=== PATIENT | male | born 1980 | race African-American/Black ===

== ENCOUNTER 2021-10-18 18:21 | Emergency (ER) | payer OTHER, MEDICAID ==
[~2021-10-18] VITALS: Ht 167.6 cm; Wt 78.0 kg
[~2021-10-18 18:21] MED LIST: GABA-529 PO; LITH150C PO
[2021-10-18 22:44] LABS: HEMATOCRIT. 44.6 % (42.0-52.0); HEMOGLOBIN. 14.7 g/dL (14.0-18.0); MEAN CORPUSCULAR HEMOGLOBIN 28.1 pg (28.0-32.0); MEAN CORPUSCULAR VOLUME 85.4 fL (80.0-94.0); PLATELET 226 x1000/uL (130-400); RED BLOOD CELL COUNT 5.22 mill/uL (4.7-6.1); RED CELL DISTRIBUTION WIDTH 13.9 % (11.6-14.6)
[2021-10-18 22:50] LABS: CHLORIDE 107 mEq/L (98-107)
[2021-10-18 22:56] LABS: ETHANOL BLOOD < 10 mg/dL
[2021-10-18 23:27] LABS: PLATELET ESTIMATE NORMAL
[2021-10-18 23:36] LABS: CLARITY URINE CLEAR (CLEAR); COLOR URINE YELLOW (YELLOW); KETONES URINE NEGATIVE (NEGATIVE); LEUKOCYTE ESTERASE URINE TRACE (NEGATIVE); NITRITE URINE NEGATIVE (NEGATIVE); OCCULT BLOOD URINE NEGATIVE (NEGATIVE); PROTEIN URINE NEGATIVE (NEGATIVE); SPECIFIC GRAVITY URINE 1.016 (1.005-1.030)
[2021-10-18 23:50] LABS: *AMPHETAMINES SCREEN URINE PRESUMTIVE POSITIVE (NEGATIVE); *BARBITURATES SCREEN URINE NEGATIVE (NEGATIVE); *BENZODIAZEPINES SCREEN URINE NEGATIVE (NEGATIVE); *COCAINE SCREEN URINE NEGATIVE (NEGATIVE); METHADONE URINE SCREEN NEGATIVE (NEGATIVE); OPIATES URINE SCREEN NEGATIVE (NEGATIVE)
[2021-10-18 23:52] LABS: CANNABINOID URINE SCREEN NEGATIVE (NEGATIVE); PHENCYCLIDINE URINE SCREEN NEGATIVE (NEGATIVE)
[2021-10-19] MEDS: SERTRALINE HCL 50MG TABLET PO SCH (09:00)
[2021-10-19] MEDS: OLANZAPINE 5MG TABLET PO SCH ×2 (11:18→17:27)
[2021-10-20] MEDS: OLANZAPINE 5MG TABLET PO SCH ×2 (08:49→18:00)
[2021-10-20] MEDS: SERTRALINE HCL 50MG TABLET PO SCH (08:49)
[2021-10-21] MEDS: OLANZAPINE 2.5MG TABLET PO SCH ×2 (09:20→21:47)
[2021-10-21] MEDS: SERTRALINE HCL 50MG TABLET PO SCH (09:20)
[2021-10-22] MEDS: OLANZAPINE 2.5MG TABLET PO SCH ×2 (10:07→21:55)
[2021-10-22] MEDS: SERTRALINE HCL 50MG TABLET PO SCH (10:07)
[2021-10-22] MEDS: EMTRICITABINE 200MG CAPSULE PO SCH (15:00)
[2021-10-22] MEDS: TENOFOVIR 300MG TABLET PO SCH (15:00)
[2021-10-23] MEDS: EMTRICITABINE 200MG CAPSULE PO SCH (08:40)
[2021-10-23] MEDS: TENOFOVIR 300MG TABLET PO SCH (08:40)
[2021-10-23] MEDS: OLANZAPINE 2.5MG TABLET PO SCH (08:40)
[2021-10-23] MEDS: SERTRALINE HCL 50MG TABLET PO SCH (09:00)
[2021-10-23] MEDS ORDERED: ELVI1TAB3 MT (16:14)
[2021-10-23] MEDS ORDERED: BICT1TAB PO (16:14)
[2021-10-23] MEDS ORDERED: OLAN10TA72 MT (16:14)
[2021-10-23] MEDS ORDERED: LAM1 MT (16:14)
[2021-10-23] MEDS ORDERED: ALBU18HF2 IH (16:14)
[2021-10-23] MEDS ORDERED: GABA-532 MT (16:14)
[2021-10-23 16:39] VITALS: BP 124/85
== END 2021-10-23 16:53 | disposition home or self-care (01) ==
LOC: ER 18:21
DX: R45.850 Homicidal ideations (principal); F22 Delusional disorders; F29 Unspecified psychosis not due to a substance or known physiological condition; J45.909 Unspecified asthma, uncomplicated; F20.9 Schizophrenia, unspecified
CPT/HCPCS: 36415; 80053; 80305; 80320; 81003; 85025; 99285; G0480

== ENCOUNTER 2023-09-03 22:42 | Emergency (ER) | payer MEDICARE, MEDICAID ==
[~2023-09-03] VITALS: Ht 167.6 cm; Wt 81.7 kg
[~2023-09-03 22:42] MED LIST changes: +ALBU18HF2 IH; +BICT1TAB PO; +ELVI1TAB3 MT; +GABA-532 MT; +LAM1 MT; +OLAN10TA72 MT
[2023-09-03 22:53] VITALS: BP 109/69; PULSE 108; RESP 16; TEMP 97.8; O2SAT 97
[2023-09-03] MEDS ORDERED: DOLU1TAB2 PO ×3 (23:14→23:44)
[2023-09-03] MEDS ORDERED: ELVI1TAB3 MT ×3 (23:14→23:44)
== END 2023-09-03 23:45 | disposition home or self-care (01) ==
LOC: ER 22:42
DX: Z76.0 Encounter for issue of repeat prescription (principal); J45.909 Unspecified asthma, uncomplicated; F20.9 Schizophrenia, unspecified; Z98.890 Other specified postprocedural states
CPT/HCPCS: 99283

== ENCOUNTER 2023-10-04 23:42 | Emergency (ER) | payer MEDICARE, MEDICAID ==
[~2023-10-04] VITALS: Ht 167.6 cm; Wt 79.5 kg
[~2023-10-04 23:42] MED LIST changes: +DOLU1TAB2 PO
[2023-10-05 01:00] VITALS: BP 133/93; O2SAT 99
[2023-10-05 01:41] LABS: BASOPHILS % 0.3 % (0.0-2.0); HEMATOCRIT. 43.2 % (42.0-52.0); HEMOGLOBIN. 14.2 g/dL (14.0-18.0); MEAN CORPUSCULAR HEMOGLOBIN 28.9 pg (28.0-32.0); MEAN CORPUSCULAR HGB CONC 32.8 g/dL (31.0-37.0); MEAN PLATELET VOLUME 7.9 fl (7.4-10.4); MONOCYTES % 10.8 % (2.0-8.0); NEUTROPHILS % 36.9 % (40.0-76.0); PLATELET 251 x1000/uL (130-400); RED CELL DISTRIBUTION WIDTH 14.1 % (11.6-14.6); WHITE BLOOD COUNT 5.8 x1000/uL (4.5-11.0)
[2023-10-05 01:54] LABS: ALANINE AMINOTRANSFERASE 20 IU/L (10-49); ALBUMIN 4.6 g/dL (3.2-4.8); ASPARTATE AMINOTRANSFERASE 28 IU/L (<34); BILIRUBIN TOTAL 0.4 mg/dL (0.1-1.0); CALCIUM 9.7 mg/dL (8.7-10.4); CARBON DIOXIDE 28 mEq/L (21-32); CHLORIDE 107 mEq/L (98-107); CREATININE 0.9 mg/dL (0.6-1.3); GLUCOSE 97 mg/dL (70-105); POTASSIUM 4.4 mEq/L (3.5-5.1); PROTEIN TOTAL 7.7 g/dL (6.0-8.3); SODIUM 142 mEq/L (136-145); UREA NITROGEN BLOOD 10 mg/dL (9-23)
[2023-10-05] MEDS ORDERED: LAMOTRIGINE 100MG TABLET PO STA (06:45)
[2023-10-05] MEDS ORDERED: FLUT9.9S BOTHNSTRLS (06:49)
[2023-10-05 07:19] VITALS: PULSE 75; RESP 20; TEMP 98.6
== END 2023-10-05 07:20 | disposition home or self-care (01) ==
LOC: ER 23:42
DX: R56.9 Unspecified convulsions (principal); Z88.1 Allergy status to other antibiotic agents
CPT/HCPCS: 36415; 80053; 82962; 85025; 93005; 99284

== ENCOUNTER 2025-07-01 04:24 | Inpatient (IN) | payer MEDICARE, MEDICAID ==
[~2025-07-01] VITALS: Ht 167.6 cm; Wt 84.8 kg
[~2025-07-01 04:24] MED LIST changes: +ABIL5 PO; +ASPI-1406 PO; +COR6 PO; +EMPA10TA PO; +FAMO20TA8 PO; +FLUT9.9S BOTHNSTRLS; +FURO40TA5 MT; +GABA-1180 MT; -GABA-529 PO; -GABA-532 MT; -OLAN10TA72 MT; +RIVA10TA PO; +SACU1TAB MT; +SERT-112 PO; +SERT100T PO; +SPIR25TA PO
[2025-07-01] MEDS ORDERED: ASPIRIN 325MG TABLET PO ONE (05:30)
[2025-07-01 05:35] LABS: BASOPHILS % 1.1 % (0.0-2.0); EOSINOPHILS % 6.3 % (0.0-5.0); HEMATOCRIT. 42.9 % (42.0-52.0); HEMOGLOBIN. 13.8 g/dL (14.0-18.0); LYMPHOCYTES % 58.6 % (20.0-50.0); MEAN PLATELET VOLUME 7.5 fl (7.4-10.4); MONOCYTES % 5.2 % (2.0-8.0); NEUTROPHILS % 28.8 % (40.0-76.0); PLATELET 162 x1000/uL (130-400); RED BLOOD CELL COUNT 5.36 mill/uL (4.7-6.1); RED CELL DISTRIBUTION WIDTH 23.9 % (11.6-14.6)
[2025-07-01 05:38] LABS: ADD RBC MORPHOLOGY YES
[2025-07-01 05:44] LABS: INR 1.1
[2025-07-01 06:05] LABS: CREATININE 1.0 mg/dL (0.6-1.3); UREA NITROGEN BLOOD 8 mg/dL (9-23)
[2025-07-01 06:06] LABS: TROPONIN I HIGH SENSITIVITY 37 ng/L (3.0-53)
[2025-07-01 06:07] LABS: ASPARTATE AMINOTRANSFERASE 37 IU/L (<34); BILIRUBIN DIRECT 0.4 mg/dL (<=3.0); BILIRUBIN TOTAL 1.0 mg/dL (0.1-1.0); PROTEIN TOTAL 6.1 g/dL (6.0-8.3)
[2025-07-01 06:14] LABS: PLATELET ESTIMATE NORMAL
[2025-07-01] MEDS ORDERED: ACETAMINOPHEN 325MG TABLET PO PRN (09:15)
[2025-07-01] MEDS ORDERED: CLONIDINE 0.1MG TABLET PO PRN (09:15)
[2025-07-01] MEDS: ASPIRIN 81MG EC TABLET PO SCH (09:15)
[2025-07-01] MEDS ORDERED: ONDANSETRON HCL 4MG/2ML INJ IV PRN (09:15)
[2025-07-01 10:12] LABS: PHOSPHORUS 3.9 mg/dL (2.5-4.9)
[2025-07-01 10:30] VITALS: BP 107/69; PULSE 99; RESP 20; TEMP 36.5; TEMP 36.5292; O2SAT 96
[2025-07-01] MEDS: EMPAGLIFLOZIN 10MG TABLET PO SCH (11:17)
[2025-07-01] MEDS: PANTOPRAZOLE SODIUM 40 MG/VIAL IV SCH (11:17)
[2025-07-01 11:53] LABS: HEPATITIS A AB IGM NEGATIVE (Negative)
[2025-07-01 11:54] LABS: HEPATITIS B CORE AB IGM NEGATIVE (Negative); HEPATITIS C AB NON REACTIVE (Neg) (Negative)
[2025-07-01] MEDS ORDERED: TENOFOVIR 300MG TABLET PO SCH (12:00)
[2025-07-01] MEDS ORDERED: EMTRICITABINE 200MG CAPSULE PO SCH (12:00)
[2025-07-01 12:54] LABS: INR 1.1
[2025-07-01 13:01] LABS: TROPONIN I HIGH SENSITIVITY 34 ng/L (3.0-53)
[2025-07-01] MEDS: SODIUM CHLORIDE 0.9% 500 ML IV ONE (13:10)
[2025-07-01] MEDS ORDERED: ATOR40TA70 PO ×2 (13:36→14:49)
[2025-07-01] MEDS ORDERED: RIVA20TA PO ×2 (13:36→14:52)
[2025-07-01] MEDS ORDERED: MIRT-89 PO (13:36)
[2025-07-01] MEDS ORDERED: LOSA25TA26 PO (13:36)
[2025-07-01] MEDS ORDERED: DOLU1TAB2 PO (13:37)
[2025-07-01] MEDS: FUROSEMIDE 20MG/2ML VIAL IVP SCH ×2 (14:32→17:47)
[2025-07-01] MEDS: SPIRONOLACTONE 12.5MG TABLET PO SCH (14:33)
[2025-07-01] MEDS ORDERED: LAMO100T16 PO (14:49)
[2025-07-01] MEDS ORDERED: OLAN10TA72 PO (14:52)
[2025-07-01] MEDS ORDERED: METO-396 PO (14:52)
[2025-07-01] MEDS ORDERED: SERT-112 PO (14:53)
[2025-07-01 16:00] VITALS: BP 122/92; PULSE 111; RESP 20; TEMP 36.5; O2SAT 100
[2025-07-01] MEDS ORDERED: RIVAROXABAN 10 MG TABLET PO SCH (17:00)
[2025-07-01 17:23] LABS: VITAMIN B12 SERUM 599 pg/mL (211-911)
[2025-07-01] MEDS: RIVAROXABAN 20 MG TABLET PO SCH (17:47)
[2025-07-01] MEDS: CARVEDILOL 6.25 MG TABLET PO SCH (20:24)
[2025-07-01] MEDS: SACUBITRIL/VALSARTAN 24MG/26MG TABLET PO SCH (20:24)
[2025-07-01] MEDS: HALOPERIDOL LACTATE 5MG/ML VIAL IM PRN (20:25)
[2025-07-01] MEDS: LAMOTRIGINE 100MG TABLET PO SCH (20:25)
[2025-07-02 00:38] LABS: TROPONIN I HIGH SENSITIVITY 47 ng/L (3.0-53)
[2025-07-02 04:00] VITALS: BP 125/88; PULSE 89; RESP 18; TEMP 36.7; O2SAT 99
[2025-07-02 08:00] VITALS: BP 135/85; PULSE 83; RESP 20; TEMP 36.2; O2SAT 99
[2025-07-02 08:02] LABS: CREATININE 1.1 mg/dL (0.6-1.3); TRIGLYCERIDE 67 mg/dL (0-150); UREA NITROGEN BLOOD 9 mg/dL (9-23)
[2025-07-02 08:03] LABS: LDL CHOLESTEROL 78 mg/dL (5-100)
[2025-07-02 08:06] LABS: T4 FREE 1.27 ng/dL (0.89-1.76)
[2025-07-02 08:11] LABS: BASOPHILS % 0.4 % (0.0-2.0); EOSINOPHILS % 4.3 % (0.0-5.0); HEMATOCRIT. 46.4 % (42.0-52.0); HEMOGLOBIN. 14.7 g/dL (14.0-18.0); LYMPHOCYTES % 39.1 % (20.0-50.0); MEAN PLATELET VOLUME 8.0 fl (7.4-10.4); MONOCYTES % 4.9 % (2.0-8.0); NEUTROPHILS % 51.3 % (40.0-76.0); PLATELET 166 x1000/uL (130-400); RED BLOOD CELL COUNT 5.81 mill/uL (4.7-6.1); RED CELL DISTRIBUTION WIDTH 23.9 % (11.6-14.6)
[2025-07-02 08:12] LABS: ADD RBC MORPHOLOGY NO
[2025-07-02] MEDS ORDERED: MEDICATION NOT ON FORMULARY EA (Bictegrav/Emtricit/Tenofov Ala (Biktarvy 50-200-25 mg Ta PO SCH (09:00)
[2025-07-02 09:07] LABS: % CD 3 POS. LYMPHOCYTES 80.3 % (57.5-86.2); % CD 4 POS. LYMPHOCYTES 45.5 % (30.8-58.5); % CD 8 POS. LYMPH 33.7 % (12.0-35.5); ABSOLUTE BASOPHILS 0.0 x10E3/uL (0.0-0.2); ABSOLUTE CD 3 1606 /uL (622-2402); ABSOLUTE CD 4 HELPER 910 /uL (359-1519); ABSOLUTE CD 8 SUPPRESSOR 674 /uL (109-897); ABSOLUTE EOSINOPHILS 0.2 x10E3/uL (0.0-0.4); ABSOLUTE LYMPHOCYTES 2.0 x10E3/uL (0.7-3.1); ABSOLUTE MONOCYTES 0.2 x10E3/uL (0.1-0.9); ABSOLUTE NEUTROPHILS 1.2 x10E3/uL (1.4-7.0); BASOPHILS 1 % (Not Estab.); EOSINOPHILS 6 % (Not Estab.); IMMATURE GRANULOCYTES 0 % (Not Estab.); IMMATURE GRANULOCYTES ABSOLUTE 0.0 x10E3/uL (0.0-0.1); LYMPHOCYTES 55 % (Not Estab.); MEAN CORPUSCULAR HGB CONC. 31.7 g/dL (31.5-35.7); MONOCYTES 4 % (Not Estab.); NEUTROPHILS 34 % (Not Estab.); PLATELETS 158 x10E3/uL (150-450); RBC 5.55 x10E6/uL (4.14-5.80); RED CELL DISTRIBUTION WIDTH 21.1 % (11.6-15.4); WBC 3.6 x10E3/uL (3.4-10.8)
[2025-07-02] MEDS: ACETAMINOPHEN 325MG TABLET PO PRN (09:54)
[2025-07-02 12:00] VITALS: BP 137/85; PULSE 83; RESP 20; TEMP 36.6; O2SAT 99
[2025-07-02 12:40] VITALS: PULSE 75; RESP 19; O2SAT 95
[2025-07-02] MEDS: IPRATROPIUM/ALBUTEROL 0.5-3(2.5)MG/3ML NEB HHN PRN (12:40)
[2025-07-02 14:51] LABS: ASPARTATE AMINOTRANSFERASE 33 IU/L (<34); BILIRUBIN DIRECT 0.6 mg/dL (<=3.0); BILIRUBIN TOTAL 1.6 mg/dL (0.1-1.0); PROTEIN TOTAL 5.9 g/dL (6.0-8.3)
[2025-07-02 16:00] VITALS: BP 138/86; PULSE 80; RESP 20; TEMP 36.4; O2SAT 99
[2025-07-02 20:00] VITALS: BP 98/63; PULSE 74; RESP 18; TEMP 36.7; O2SAT 99
[2025-07-03] VITALS: BP 118/78; PULSE 90; RESP 20; TEMP 36.5; O2SAT 98
[2025-07-03 04:00] VITALS: BP 133/68; PULSE 90; RESP 21; TEMP 36.2; O2SAT 96
[2025-07-03 08:00] VITALS: BP 104/62; PULSE 100; RESP 20; TEMP 36.4; O2SAT 96
[2025-07-03 10:53] LABS: BASOPHILS % 0.5 % (0.0-2.0); EOSINOPHILS % 5.0 % (0.0-5.0); HEMATOCRIT. 45.7 % (42.0-52.0); HEMOGLOBIN. 14.5 g/dL (14.0-18.0); LYMPHOCYTES % 37.4 % (20.0-50.0); MEAN PLATELET VOLUME 7.7 fl (7.4-10.4); MONOCYTES % 7.6 % (2.0-8.0); NEUTROPHILS % 49.5 % (40.0-76.0); PLATELET 190 x1000/uL (130-400); RED BLOOD CELL COUNT 5.71 mill/uL (4.7-6.1); RED CELL DISTRIBUTION WIDTH 23.8 % (11.6-14.6)
[2025-07-03 11:18] LABS: CREATINE KINASE MB FRACTION 1.7 ng/mL (0.5-3.6)
[2025-07-03 11:19] LABS: TROPONIN I HIGH SENSITIVITY 26 ng/L (3.0-53)
[2025-07-03 11:21] LABS: CREATININE 1.1 mg/dL (0.6-1.3); UREA NITROGEN BLOOD 11 mg/dL (9-23)
[2025-07-03 12:00] VITALS: BP 120/85; PULSE 110; RESP 20; TEMP 36.6; O2SAT 95
[2025-07-03 12:28] VITALS: BP 120/85; PULSE 110; RESP 20; TEMP 97.5
== END 2025-07-03 14:19 | disposition home or self-care (01) | DRG 291 ==
LOC: ER 04:24 → 7WST 07:05 → EDBEDREQ 07:07 → EDBEDREQTM 07:07 → ENRESERV 09:41
PROVIDERS: ADMIT Internal Medicine; ATTEND Internal Medicine
DX: I11.0 Hypertensive heart disease with heart failure (principal); I50.23 Acute on chronic systolic (congestive) heart failure; E87.20 Acidosis, unspecified; Z59.00 Homelessness unspecified; I42.0 Dilated cardiomyopathy; F19.10 Other psychoactive substance abuse, uncomplicated; D64.9 Anemia, unspecified; E11.65 Type 2 diabetes mellitus with hyperglycemia; J45.909 Unspecified asthma, uncomplicated; I34.0 Nonrheumatic mitral (valve) insufficiency; G40.909 Epilepsy, unspecified, not intractable, without status epilepticus; F32.A Depression, unspecified; E78.5 Hyperlipidemia, unspecified; I27.20 Pulmonary hypertension, unspecified; F15.10 Other stimulant abuse, uncomplicated; F17.210 Nicotine dependence, cigarettes, uncomplicated; Z91.148 Patient's other noncompliance with medication regimen for other reason; Z79.899 Other long term (current) drug therapy; Z79.01 Long term (current) use of anticoagulants; Z79.82 Long term (current) use of aspirin; Z86.711 Personal history of pulmonary embolism; Z79.84 Long term (current) use of oral hypoglycemic drugs
CPT/HCPCS: 36415; 71045; 80048; 80061; 80076; 82550; 82553; 82607; 83036; 83540; 83550; 83605; 83735; 83880; 84100; 84439; 84443; 84484; 85025; 85379; 86359; 86360; 86705; 86709; 87340; 93005; 93306; 93970; 94640; 99285; J1630; J1938; J2470